=== PATIENT | male | born 1955 | race Caucasian/White ===

== ENCOUNTER 2017-03-01 19:20 | Outpatient (CLI) | payer MEDICAID | END 2017-03-01 19:21 | disposition critical access hospital (66) | LOC: EMS 19:20 | PROVIDERS: ATTEND Surgery | DX: R06.00 Dyspnea, unspecified (principal) | CPT/HCPCS: A0425; A0427 ==

== ENCOUNTER 2017-03-01 19:47 | Inpatient (IN) | payer MEDICAID ==
[2017-03-01] MEDS ORDERED: IPRATROPIUM/ALBUTEROL 3 ML NEB INH STA (20:10)
[2017-03-01] MEDS ORDERED: methylPREDNISolone SUCCINATE 125 MG/2 ML VIAL IVP STA (20:11)
[2017-03-01] MEDS ORDERED: AZITHROMYCIN INJ 500 MG in SODIUM CHLORIDE 0.9% 250 ML IV STA (20:21)
--- NOTE | 2017-03-01 20:23 | ED Physician Documentation ---
PD HPI DYSPNEA - Stated complaint Stated Complaint: SOA - Chief complaint Chief Complaint: Resp - History obtained from History obtained from: Patient - History of Present Illness Timing - onset: How many days ago (4) Timing - onset during: Light activity Timing - details: Gradual onset, Still present Inciting event(s): Out of meds Improved by: O2, Inhaler/neb, Steroids, Rest Worsened by: Exertion, Coughing, Smoke Similar symptoms before: Work up / diagnostics Recently seen: Not recently seen - Additional information Additional information: Patient is a 62 year old male with a history of copd who smokes daily who is presenting to the emergency department for worsening shortness of breath. ptaient states that he is unable to walk more than 10 feet before he gets short of breath. patient also states that he has been coughing up productive sputum daily for the last 4-5 days. patient's only home medication is albuterol. Review of Systems Constitutional: denies: Fever, Chills Eyes: reports: Reviewed and negative Ears: reports: Reviewed and negative Nose: denies: Rhinorrhea / runny nose, Congestion Cardiac: denies: Chest pain / pressure, Palpitations, Calf pain Respiratory: reports: Dyspnea, Cough, Wheezing GI: denies: Nausea, Vomiting : reports: Reviewed and negative Skin: reports: Reviewed and negative Musculoskeletal: denies: Neck pain, Back pain, Extremity pain, Extremity swelling Neurologic: reports: Generalized weakness. denies: Focal weakness, Numbness PD PAST MEDICAL HISTORY - Past Medical History Past Medical History: Yes Respiratory: COPD - Past Surgical History Past Surgical History: No - Present Medications Home Medications: Ambulatory Orders Medication Instructions Recorded Confirmed Albuterol Sulfate [Proair Hfa] 2 puffs INH Q4HR 05/02/15 03/01/17 - Allergies Allergies/Adverse Reactions: Allergies Allergy/AdvReac Type Severity Reaction Status Date / Time No Known Drug Allergies Allergy Verified 03/01/17 19:55 - Social History Does the pt smoke?: Yes Smoking Status: Current every day smoker Does the pt drink ETOH?: Yes Does the pt have substance abuse?: No - Immunizations Immunizations are current?: Yes - POLST Patient has POLST: No PD ED PE NORMAL - Vitals Vital signs reviewed: Yes - General General: Alert and oriented X 3 - HEENT HEENT: Atraumatic, PERRL - Neck Neck: Supple, no meningeal sign, No JVD - Abdomen Abdomen: Soft, Non tender, Non distended - Extremities Extremities: No deformity, No edema, No calf tenderness / cord - Neuro Neuro: Alert and oriented X 3, No motor deficit, No sensory deficit, Normal speech - Psych Psych: Normal mood PD ED PE EXPANDED - General General: Alert - HEENT HEENT: Dry mucous membranes - Respiratory Respiratory: Labored, Wheezing, Right upper lobe, Right middle lobe, Right lower lobe, Left upper lobe, Left lower lobe - Derm Derm: Other (ashen) Results - Vitals Vitals: Vital Signs - 24 hr 03/01/17 03/01/17 03/01/17 19:48 20:00 20:20 Temperature 36.9 C Heart Rate 95 93 82 Respiratory 18 20 18 Rate Blood Pressure 151/100 H 132/66 H O2 Saturation 90 L 91 L 03/01/17 03/01/17 03/01/17 20:53 21:04 21:06 Temperature Heart Rate 98 87 87 Respiratory 20 18 18 Rate Blood Pressure 122/88 H O2 Saturation 89 L 86 L 93 03/01/17 21:41 Temperature Heart Rate 114 H Respiratory 18 Rate Blood Pressure 141/86 H O2 Saturation 88 L Oxygen O2 Source Room air Oxygen Flow Rate 2 - Labs Labs: Laboratory Tests 03/01/17 03/01/17 03/01/17 20:18 20:18 20:18 WBC 11.0 H RBC 4.43 L Hgb 14.9 Hct 43.5 MCV 98.2 H MCH 33.5 H MCHC 34.2 RDW 12.5 Plt Count 282 MPV 8.8 Neut # 8.4 H Lymph # 1.6 [place] # 0.9 Eos # Not Reportable Baso # 0.1 Total Counted 100 Band Neuts % (Manual) 0 Abnorm Lymph % (Manual) 0 Neutrophils # (Manual) 8.4 H Lymphocytes # (Manual) 1.7 Monocytes # (Manual) 0.9 Eosinophils # (Manual) 0.0 Basophils # (Manual) 0.1 Differential Comment MANUAL DIFFERENTIAL Manual Slide Review Indicated Platelet Estimate NORMAL (130-450,000) Platelet Morphology NORMAL APPEARANCE RBC Morph Micro Appear NORMAL APPEARANCE Sodium 129 L Potassium 4.2 Chloride 93 L Carbon Dioxide 23 Anion Gap 13.0 BUN 8 Creatinine 0.5 L Estimated GFR (MDRD) 170 Glucose 105 H Calcium 8.4 L Total Bilirubin 0.3 AST 26 ALT 23 Alkaline Phosphatase 96 Troponin I < 0.04 B-Natriuretic Peptide Total Protein 7.3 Albumin 4.0 Globulin 3.3 Albumin/Globulin Ratio 1.2 Lipase 19 L 03/01/17 20:18 WBC RBC Hgb Hct MCV MCH MCHC RDW Plt Count MPV Neut # Lymph # [place] # Eos # Baso # Total Counted Band Neuts % (Manual) Abnorm Lymph % (Manual) Neutrophils # (Manual) Lymphocytes # (Manual) Monocytes # (Manual) Eosinophils # (Manual) Basophils # (Manual) Differential Comment Manual Slide Review Platelet Estimate Platelet Morphology RBC Morph Micro Appear Sodium Potassium Chloride Carbon Dioxide Anion Gap BUN Creatinine Estimated GFR (MDRD) Glucose Calcium Total Bilirubin AST ALT Alkaline Phosphatase Troponin I B-Natriuretic Peptide 57 Total Protein Albumin Globulin Albumin/Globulin Ratio Lipase - Rads (name of study) chest x-ray Radiology: Final report received (no acute disease process), EMP read contemporaneously (right lower lobe opacity) PD MEDICAL DECISION MAKING - ED course Complexity details: reviewed old records, reviewed results, re-evaluated patient , considered differential, d/w patient ED course: Patient was seen and examined at bedside. IV access was gained. Labs were drawn. Patient was treated with two duoneb treatments, solumedrol and azithromycin. Chest x-ray was performed. when patient returned from imaging he stated he felt a little better but was still short of breath. A trial of ambulation was performed and patient was hypoxic into the low 80s. Hospitalist was contacted and the case was discussed with her. patient was admitted for further evaluation and care. Departure - Departure Disposition: [facility] DC/Xfer Clinical Impression: COPD exacerbation Condition: Stable
[2017-03-01 20:36] LABS: ALBUMIN/GLOBULIN RATIO 1.2 (1.0-2.2); BILIRUBIN,TOTAL 0.3 mg/dL (0.2-1.0); CALCIUM 8.4 mg/dL (8.5-10.3); CREATININE 0.5 mg/dL (0.6-1.2); TOTAL PROTEIN 7.3 g/dL (6.7-8.2)
[2017-03-01 20:50] LABS: HGB - HEMOGLOBIN 14.9 g/dL (14.0-18.0); MEAN CORPUSCULAR HEMOGLOBIN 33.5 pg (27.0-31.0); MEAN CORPUSCULAR HGB CONC 34.2 g/dL (32.0-36.0); MEAN CORPUSCULAR VOLUME 98.2 fL (80.0-94.0); RED BLOOD COUNT 4.43 10^6/uL (4.70-6.10); RED CELL DISTRIBUTION WIDTH 12.5 % (12.0-15.0)
[2017-03-01 20:51] LABS: MEAN PLATELET VOLUME 8.8 fL (7.4-11.4); PLT - PLATELET COUNT 282 10^3/uL (130-450)
[2017-03-01 20:52] LABS: ABNORMAL LYMPHS % (MANUAL) 0 %; BAND NEUTROPHILS % (MANUAL) 0 %
[2017-03-01] MEDS ORDERED: ONDANSETRON 4 MG/2 ML VIAL IVP STA (20:56)
[2017-03-01] MEDS ORDERED: SODIUM CHLORIDE 0.9% 1,000 ML IV ONE (20:57)
--- NOTE | 2017-03-01 21:02 | XRAY Report ---
EXAM: CHEST RADIOGRAPHY EXAM DATE: 03/01/2017 08:50 PM. CLINICAL HISTORY: Hypoxic. COMPARISON: 05/02/2015. TECHNIQUE: 2 views. FINDINGS: Lungs/Pleura: Lungs are well expanded. No evidence of lobar consolidation or effusion. No pneumothora x. Mediastinum: Heart and mediastinal contours are unremarkable. Other: None. IMPRESSION: No acute intrathoracic plain film abnormality. [facility] Referring Provider Line: [phone] SITE ID: [id number]
[2017-03-01 21:03] LABS: BASOPHILS # (MANUAL) 0.1 10^3/uL (0-0.1); BASOPHILS % (MANUAL) 1 %; DIFFERENTIAL COMMENT MANUAL DIFFERENTIAL; LYMPHOCYTES # (MANUAL) 1.7 10^3/uL (1.5-3.5); LYMPHOCYTES % (MANUAL) 15 %; MONOCYTES # (MANUAL) 0.9 10^3/uL (0.0-1.0); NEUTROPHILS # (MANUAL) 8.4 10^3/uL (1.5-6.6); NEUTROPHILS % (MANUAL) 76 %; PLATELET ESTIMATE, MANUAL NORMAL (130-450,000) (NORMAL); PLATELET MORPHOLOGY NORMAL APPEARANCE (NORMAL); RBC MORPHOLOGY (MULTIPLE) NORMAL APPEARANCE (NORMAL)
[2017-03-01 21:08] LABS: BASOPHILS # (AUTO) 0.1 10^3/uL (0.0-0.1); LYMPHOCYTES # (AUTO) 1.6 10^3/uL (1.5-3.5); MONOCYTES # (AUTO) 0.9 10^3/uL (0.0-1.0); NEUTROPHILS # (AUTO) 8.4 10^3/uL (1.5-6.6)
[2017-03-01] MEDS ORDERED: TEMAZEPAM 15 MG CAPSULE PO PRN (22:51)
[2017-03-01] MEDS ORDERED: IBUPROFEN 600 MG TABLET PO PRN (22:51)
[2017-03-01] MEDS ORDERED: PROCHLORPERAZINE 10 MG/2 ML VIAL IVP PRN (22:51)
[2017-03-01] MEDS ORDERED: NS W/20 MEQ KCL 1,000 ML IV SCH (23:00)
--- NOTE | 2017-03-01 23:18 | HISTORY & PHYSICAL EXAMINATION ---
Chief Complaint - Chief Complaint Chief Complaint: Shortness of breath History of Present Illness - Admitted From Admitted From:: Home - History of Present Illness HPI Comment/Other: Mr. Shankar Dozier is a 62-year-old male who was diagnosed with COPD last year. He is supposed to take albuterol and follow-up with physicians regularly however he says that he has not done so since he lost his "Obama care " many months ago.He has been having increasing difficulty breathing over the last several months and over the last few weeks that has increased significantly. He is having significant dyspnea with any type of exertion and also at rest. He has been coughing up green sputum. He came to the [facility] emergency department and although the workup was essentially negative he is far too dyspneic with any type of exertion to be discharged. History - Past Medical History Respiratory: reports: COPD - Past Surgical History HEENT: reports: Tonsil/Adenoidectomy - Family & Social History Family History: Mother: (Mother of carbon monoxide poisoning), Father: , Hyperlipidemia, Hypertension, MD, Sister: Alive and Well, Mental Illness Living arrangement: At home Living Situation: Alone - Substance History Abuse: Recurrent use of substance despite neg consequences: Alcohol, Other ( Patient continues to smoke 1 pack per day of cigarettes despite being diagnosed with COPD) - POLST Patient has POLST: No POLST Status: Full Code Meds/Allgy - Home Medications Home Medications: Ambulatory Orders Medication Instructions Recorded Confirmed Albuterol Sulfate [Proair Hfa] 2 puffs INH Q4HR 05/02/15 03/01/17 - Allergies Allergies/Adverse Reactions: Allergies Allergy/AdvReac Type Severity Reaction Status Date / Time No Known Drug Allergies Allergy Verified 03/01/17 19:55 Review of Systems - Constitutional Constitutional: reports: Fatigue, Weakness. denies: Fever, Chills - Eyes Eyes: denies: Pain, Irritation, Blurred vision, Dipolpia - Ears, Nose & Throat Ears, Nose & Throat: denies: Ear pain, Hearing loss, Tinnitus, Vertigo, Nasal discharge, Sore throat - Cardiovascular Cariovascular: denies: Irregular heart rate, Palpitations, Chest pain, Edema - Respiratory Respiratory: reports: Cough, Sputum production, SOB at rest, SOB with exertion. denies: Wheezing - Gastrointestinal Gastrointestinal: denies: Abdominal pain, Abdominal distention, Constipation, Diarrhea, Rectal bleeding - Genitourinary Genitourinary: denies: Dysuria, Frequency, Urgency, Hematuria - Musculoskeletal Musculoskeletal: denies: Muscle pain, Back pain, Muscle aches, Stiffness - Integumentary Integumentary: denies: Rash, Pruritis, Lesions - Neurological Neurological: denies: General weakness, Focal weakness, Headache, Dizziness - Psychiatric Psychiatric: denies: Depression, Anxiety, Suicidal, Hallucinations - Endocrine Endocrine: denies: Polyuria, Polydypsia, Polyphagia - Hematologic/Lymphatic Hematologic/Lymphatic: denies: Anemia, Bruising, Lymphadenopathy - All Other Systems All Other Systems: reports: Reviewed and negative Exam - Vital Signs Reviewed Vital Signs: Yes Vital Signs: Vital Signs x48h Temp Pulse Resp BP Pulse Ox 03/01/17 22:57 90 18 142/94 H 91 L 03/01/17 22:30 105 H 18 131/93 H 90 L 03/01/17 21:41 114 H 18 141/86 H 88 L 03/01/17 21:06 87 18 93 03/01/17 21:04 87 18 86 L 03/01/17 20:53 98 20 122/88 H 89 L 03/01/17 20:20 82 18 03/01/17 20:00 93 20 132/66 H 91 L 03/01/17 19:48 36.9 C 95 18 151/100 H 90 L - Physical Exam General Appearance: positive: Alert, Mild distress, Anxious Eyes Bilateral: positive: Normal inspection, PERRL, EOMI, No lid inflammation ENT: positive: ENT inspection nml, Pharynx nml, No signs of dehydration. negative: Purulent nasal drainage Neck: positive: Nml inspection, Thyroid nml, No JVD, Trachea midline. negative : Thyromegaly Respiratory: positive: Chest non-tender, Other (Lung sounds are diminished in all freeman). negative: Wheezes, Rales, Rhonchi Cardiovascular: positive: Regular rate & rhythm, No murmur, No gallop. negative : Systolic murmur, Diastolic murmur Peripheral Pulses: positive: 1+ Abdomen: positive: Non-tender, No organomegaly, Nml bowel sounds, No distention. negative: Guarding, Rebound Back: positive: Nml inspection. negative: CVA tenderness (R), CVA tenderness (L ) Skin: positive: Color nml, No rash, Warm, Dry Extremities: positive: Non-tender, Full ROM, Nml appearance, No pedal edema Neurologic/Psychiatric: positive: Oriented x3, CN's nml (2-12), Motor nml, Sensation nml, Mood/affect nml Conclusion/Plan - Problem List (1) COPD exacerbation Conclusion/Plan: We will admit the patient to medical surgical bed, order [id number] nebulizer treatments, supplemental oxygen, and respiratory therapy, and will address any other issues as they arise. - Lab Results Lab results reviewed: Yes Fish Bones: 03/01/17 20:18 03/01/17 20:18 - Diagnostic Imaging Results Diagnostic Imaging Results: positive: Final report reviewed Diagnostic Imaging Results Comments: EXAM: CHEST RADIOGRAPHY EXAM DATE: 03/01/2017 08:50 PM. CLINICAL HISTORY: Hypoxic. COMPARISON: 05/02/2015. TECHNIQUE: 2 views. FINDINGS: Lungs/Pleura: Lungs are well expanded. No evidence of lobar consolidation or effusion. No pneumothorax. Mediastinum: Heart and mediastinal contours are unremarkable. Other: None. IMPRESSION: No acute intrathoracic plain film abnormality. Core Measures - Anticipated LOS I expect patient to be DC'd or transferred within 96 hours.: Yes - DVT/VTE - Prophylaxis VTE/DVT Device ordered at admit?: Yes
[2017-03-01 23:19] LABS: BASOPHILS % (AUTO) 0.3 %; EOSINOPHILS % (AUTO) 0.1 %; HGB - HEMOGLOBIN 14.1 g/dL (14.0-18.0); LYMPHOCYTES # (AUTO) 0.4 10^3/uL (1.5-3.5); MEAN CORPUSCULAR HEMOGLOBIN 33.4 pg (27.0-31.0); MEAN CORPUSCULAR HGB CONC 34.2 g/dL (32.0-36.0); MEAN CORPUSCULAR VOLUME 97.6 fL (80.0-94.0); MEAN PLATELET VOLUME 8.5 fL (7.4-11.4); MONOCYTES # (AUTO) 0.2 10^3/uL (0.0-1.0); MONOCYTES % (AUTO) 1.6 %; NEUTROPHILS # (AUTO) 11.1 10^3/uL (1.5-6.6); PLT - PLATELET COUNT 287 10^3/uL (130-450); RED BLOOD COUNT 4.22 10^6/uL (4.70-6.10); RED CELL DISTRIBUTION WIDTH 12.6 % (12.0-15.0); WHITE BLOOD COUNT 11.7 x10^3/uL (4.8-10.8)
[2017-03-02] MEDS: NICOTINE 21 MG PATCH TOP SCH ×2 (00:03→23:36)
[2017-03-02] MEDS ORDERED: NICOTINE 21 MG PATCH TOP ONE ×2 (00:07→23:40)
[2017-03-02] MEDS: LORazepam 0.5 MG TABLET PO SCH ×5 (00:10→23:36)
[2017-03-02] MEDS ORDERED: ALBUTEROL NEB 2.5 MG/3 ML INH PRN (00:15)
[2017-03-02 06:02] LABS: CALCIUM 8.4 mg/dL (8.5-10.3); MAGNESIUM 2.2 mg/dL (1.7-2.8)
[2017-03-02] MEDS: SODIUM CHLORIDE FLUSH 0.9% 10 ML SYRINGE IVP SCH ×3 (06:37→21:55)
[2017-03-02] MEDS ORDERED: IPRATROPIUM/ALBUTEROL 3 ML NEB INH SCH ×2 (07:00→08:00)
--- NOTE | 2017-03-02 07:46 | PROVIDER PROGRESS NOTE ---
Subjective - Prog Note Date Prog Note Date: 03/02/17 Prog Note Time: 07:45 - Subjective Pt reports feeling: Improved Subjective: Shankar states, "I just want to breath". He denies N/V, or a different cough. He admits to mild chest discomfort related to breathing efforts, continued shortness of breath. Current Medications - Current Medications Current Medications: Active Medications Albuterol () 2.5 mg INH RTQ4H PRN PRN Reason: Wheezing Beer (Beer) 355 ml PO 1000,1300,1800 INGRID Guaifenesin (Mucinex) 1,200 mg PO BID INGRID Guaifenesin (Mucinex) 600 mg PO ONCE ONE Stop: 03/02/17 12:01 Moxifloxacin HCl (Avelox 400mg/250ml Iv) 400 mg in 250 mls @ 250 mls/hr IV DAILY [facility] Ibuprofen (Motrin) 600 mg PO Q6HR PRN PRN Reason: Pain 1 to 4 Levalbuterol HCl (Xopenex) 1.25 mg INH Q4H PRN PRN Reason: Wheezing Last Admin: 03/02/17 11:20 Dose: 1.25 mg Lorazepam (Ativan) 0.5 mg PO Q6H [facility] Last Admin: 03/02/17 06:37 Dose: 0.5 mg Methylprednisolone Sodium Succinate (Solu-Medrol (125mg Vial)) 125 mg IVP TID [facility] Nicotine (Nicoderm) 1 patch TOP ONCE [facility] Stop: 03/03/17 02:00 Last Admin: 03/02/17 00:03 Dose: 1 patch Polyethylene Glycol (Miralax) 17 gm PO DAILY [facility] Last Admin: 03/02/17 09:32 Dose: Not Given Prochlorperazine Edisylate (Compazine Inj) 10 mg IVP Q6HR PRN PRN Reason: Nausea / Vomiting Sodium Chloride (Normal Saline Flush 0.9%) 10 ml IVP PRN PRN PRN Reason: NEEDED PER PROVIDER ORDERS Last Admin: 03/02/17 09:30 Dose: 10 ml Sodium Chloride (Normal Saline Flush 0.9%) 10 ml IVP Q8HR INGRID Last Admin: 03/02/17 06:37 Dose: Not Given Temazepam (Restoril) 15 mg PO QPM PRN PRN Reason: Insomnia Albuterol Sulfate [Proair Hfa] 2 puffs INH Q4HR 05/02/15 Objective - Vital Signs/Intake & Output Reviewed Vital Signs: Yes Vital Signs: Vital Signs x48h Pulse Resp 03/02/17 07:00 77 18 Intake & Output: Intake & Output 02/27/17 02/28/17 03/01/17 03/02/17 23:59 23:59 23:59 23:59 Output Total 700 1225 Balance -700 -5315 - Objective General Appearance: positive: Alert, Moderate distress, Anxious Eyes Bilateral: positive: Normal inspection ENT: positive: ENT inspection nml, Pharynx nml, Dry mucous membranes Neck: positive: Thyroid nml, No JVD, Trachea midline, Stiff neck, Other (All accessory muscle use.) Respiratory: positive: Chest non-tender, Wheezes, Rales, Other (congestion, rales, with wheezing.). negative: No respiratory distress Cardiovascular: positive: Irregularly irregular, Tachycardia, Systolic murmur, Gallop/S4 Peripheral Pulses: 2+ Radial (R), 2+ Radial (L) Abdomen: positive: Non-tender, No organomegaly, Nml bowel sounds, No distention Back: positive: Nml inspection Skin: positive: No rash, Warm, Dry, Cyanosis (mild) Extremities: positive: Non-tender, Full ROM, No pedal edema Neurologic/Psychiatric: positive: Oriented x3, CN's nml (2-12), Motor nml, Sensory loss, Depressed mood/affect Reflexes: Bicep (R): 2+, Bicep (L): 2+ - Lab Results Fish Bones: 03/02/17 05:27 03/02/17 05:27 Other Labs: Lab Results x24hrs 03/02/17 03/01/17 Range/Units 05:27 23:05 WBC 11.7 H (4.8-10.8) x10^3/uL RBC 4.22 L (4.70-6.10) 10^6/uL Hgb 14.1 (14.0-18.0) g/dL Hct 41.2 L (42.0-52.0) % MCV 97.6 H (80.0-94.0) fL MCH 33.4 H (27.0-31.0) pg MCHC 34.2 (32.0-36.0) g/dL RDW 12.6 (12.0-15.0) % Plt Count 287 (130-450) 10^3/uL MPV 8.5 (7.4-11.4) fL Neut # 11.1 H (1.5-6.6) 10^3/uL Lymph # 0.4 L (1.5-3.5) 10^3/uL [place] # 0.2 (0.0-1.0) 10^3/uL Eos # 0.0 (0.0-0.7) 10^3/uL Baso # 0.0 (0.0-0.1) 10^3/uL Absolute Nucleated RBC 0.00 x10^3/uL Nucleated RBC % 0.0 /100WBC Calcium 8.4 L (8.5-10.3) mg/dL Magnesium 2.2 (1.7-2.8) mg/dL - Diagnostic Imaging Diagnostic Imaging Results: positive: Final report reviewed Diagnostic Imaging Comments: Chest x-ray: FINDINGS: Lungs/Pleura: Lungs are well expanded. No evidence of lobar consolidation or effusion. No pneumothorax. Mediastinum: Heart and mediastinal contours are unremarkable. Other: None. IMPRESSION: No acute intrathoracic plain film abnormality. Assessment/Plan - Problem List (1) COPD exacerbation Impression: Patient has severe COPD and states that he cannot afford his inhalers. He has not been oxygen dependent. Plan: xopenex nebs, high dose IV steroids, IV antibiotics and oxygen sat test per RT. (2) Tobacco dependence Impression: Patient has been a life long smoker, and states today during his exam that he now is interested in quitting because he realizes the impact on his lung it has had. Plan: Nicotine replacement with nicotine patches. (3) Alcohol dependence Impression: Patient is profoundly debilitated due to his alcohol abuse. MUDDS urine ordered -pending. Patient states that he consumes a 6-pack of beer per day and has not tried to cut back or stop drinking. He states that he lost his job a year ago when his lung disease became worse, so has not been able to afford insurance, or appropriate COPD treatment. Plan: Ordered BEER to prevent withdrawal, since this is not his primary admitting diagnosis. Qualifiers: Substance use status: unspecified alcohol-induced disorder Qualified Code(s ): F10.29 - Alcohol dependence with unspecified alcohol-induced disorder (4) Medical non-compliance Impression: Patient admits to not managing his lung disease. Plan: Create a plan to promote compliance and ease of obtaining medications.
[2017-03-02 07:53] LABS: BASOPHILS % (AUTO) 0.1 %; HGB - HEMOGLOBIN 14.1 g/dL (14.0-18.0); LYMPHOCYTES # (AUTO) 0.3 10^3/uL (1.5-3.5); LYMPHOCYTES % (AUTO) 3.3 %; MEAN CORPUSCULAR HEMOGLOBIN 33.9 pg (27.0-31.0); MEAN CORPUSCULAR HGB CONC 34.2 g/dL (32.0-36.0); MEAN CORPUSCULAR VOLUME 99.2 fL (80.0-94.0); MEAN PLATELET VOLUME 9.3 fL (7.4-11.4); MONOCYTES # (AUTO) 0.1 10^3/uL (0.0-1.0); MONOCYTES % (AUTO) 1.5 %; NEUTROPHILS # (AUTO) 7.5 10^3/uL (1.5-6.6); NEUTROPHILS % (AUTO) 95.1 %; PLT - PLATELET COUNT 285 10^3/uL (130-450); RED BLOOD COUNT 4.16 10^6/uL (4.70-6.10); RED CELL DISTRIBUTION WIDTH 12.4 % (12.0-15.0); WHITE BLOOD COUNT 7.9 x10^3/uL (4.8-10.8)
[2017-03-02 07:58] LABS: ALBUMIN 3.8 g/dL (3.2-5.5); ALBUMIN/GLOBULIN RATIO 1.4 (1.0-2.2); BILIRUBIN,TOTAL 0.2 mg/dL (0.2-1.0); CALCIUM 8.5 mg/dL (8.5-10.3); CREATININE 0.6 mg/dL (0.6-1.2); TOTAL PROTEIN 6.6 g/dL (6.7-8.2)
[2017-03-02] MEDS ORDERED: methylPREDNISolone SUCCINATE 40 MG/ML VIAL IVP SCH (08:00)
[2017-03-02] MEDS ORDERED: guaiFENesin 600 MG TABLET PO SCH (08:00)
[2017-03-02 08:28] LABS: HB2 TOTAL 15.8 g/dL; HEMOGLOBIN A1C 0.56 g/dL; HEMOGLOBIN A1C % 5.4 % (4.6-6.2)
[2017-03-02] MEDS: SODIUM CHLORIDE FLUSH 0.9% 10 ML SYRINGE IVP PRN (09:30)
[2017-03-02] MEDS: POLYETHYLENE GLYCOL 3350 17 GM PACKET PO SCH (09:32)
[2017-03-02] MEDS: LEVALBUTEROL 1.25 MG/3 ML NEB INH PRN ×2 (11:20→15:05)
[2017-03-02] MEDS ORDERED: guaiFENesin 600 MG TABLET PO ONE (12:00)
[2017-03-02] MEDS: methylPREDNISolone SUCCINATE 125 MG/2 ML VIAL IVP SCH ×2 (12:02→21:56)
[2017-03-02] MEDS: MOXIFLOXACIN 400MG/250ML IV 400 MG/250 ML BAG IV SCH (12:02)
[2017-03-02] MEDS: BEER 355 ML BOTTLE PO SCH ×2 (12:36→18:16)
[2017-03-02 20:42] LABS: MUDS CUTOFF CONCENTRATIONS CUTOFF CONC BELOW:
[2017-03-02 20:57] LABS: AMPHETAMINE SCREEN,URINE NEGATIVE (NEGATIVE); BENZODIAZEPINES SCREEN, URINE POSITIVE (NEGATIVE); COCAINE SCREEN URINE NEGATIVE (NEGATIVE); METHADONE SCREEN, URINE POSITIVE (NEGATIVE); METHAMPHETAMINES SCREEN, URINE NEGATIVE (NEGATIVE); OPIATE SCREEN, URINE NEGATIVE (NEGATIVE); OXYCODONE SCREEN, URINE NEGATIVE (NEGATIVE); PROPOXYPHENE SCREEN, URINE NEGATIVE (NEGATIVE); TRICYCLIC ANTIDEPRESSANT,URINE NEGATIVE (NEGATIVE)
[2017-03-02] MEDS: guaiFENesin 600 MG TABLET PO SCH (21:55)
[2017-03-02] MEDS: SODIUM CHLORIDE 0.65% NASAL SPRAY NAS SCH (21:58)
[2017-03-02] MEDS ORDERED: SODIUM CHLORIDE FLUSH 0.9% 10 ML SYRINGE IVP ONE (21:59)
[2017-03-03] MEDS: methylPREDNISolone SUCCINATE 125 MG/2 ML VIAL IVP SCH ×3 (05:54→21:29)
[2017-03-03] MEDS: SODIUM CHLORIDE FLUSH 0.9% 10 ML SYRINGE IVP SCH ×3 (05:55→21:29)
[2017-03-03] MEDS: LORazepam 0.5 MG TABLET PO SCH ×3 (05:55→17:43)
[2017-03-03 06:30] LABS: HGB - HEMOGLOBIN 14.4 g/dL (14.0-18.0); LYMPHOCYTES # (AUTO) 0.4 10^3/uL (1.5-3.5); LYMPHOCYTES % (AUTO) 2.9 %; MEAN CORPUSCULAR HEMOGLOBIN 33.1 pg (27.0-31.0); MEAN CORPUSCULAR HGB CONC 33.2 g/dL (32.0-36.0); MEAN CORPUSCULAR VOLUME 99.8 fL (80.0-94.0); MEAN PLATELET VOLUME 8.8 fL (7.4-11.4); MONOCYTES # (AUTO) 0.6 10^3/uL (0.0-1.0); MONOCYTES % (AUTO) 3.9 %; NEUTROPHILS # (AUTO) 13.1 10^3/uL (1.5-6.6); NEUTROPHILS % (AUTO) 93.2 %; PLT - PLATELET COUNT 301 10^3/uL (130-450); RED BLOOD COUNT 4.34 10^6/uL (4.70-6.10); RED CELL DISTRIBUTION WIDTH 12.4 % (12.0-15.0); WHITE BLOOD COUNT 14.1 x10^3/uL (4.8-10.8)
[2017-03-03 06:39] LABS: ALBUMIN 3.6 g/dL (3.2-5.5); ALBUMIN/GLOBULIN RATIO 1.2 (1.0-2.2); BILIRUBIN,TOTAL 0.3 mg/dL (0.2-1.0); CALCIUM 8.7 mg/dL (8.5-10.3); CREATININE 0.5 mg/dL (0.6-1.2); TOTAL PROTEIN 6.7 g/dL (6.7-8.2)
[2017-03-03] MEDS: guaiFENesin 600 MG TABLET PO SCH ×2 (08:28→21:29)
[2017-03-03] MEDS: SODIUM CHLORIDE FLUSH 0.9% 10 ML SYRINGE IVP PRN (08:28)
[2017-03-03] MEDS: POLYETHYLENE GLYCOL 3350 17 GM PACKET PO SCH (08:29)
[2017-03-03] MEDS: MOXIFLOXACIN 400MG/250ML IV 400 MG/250 ML BAG IV SCH (08:29)
[2017-03-03] MEDS: SODIUM CHLORIDE 0.65% NASAL SPRAY NAS SCH ×2 (08:29→21:29)
--- NOTE | 2017-03-03 10:09 | PROVIDER PROGRESS NOTE ---
Subjective - Prog Note Date Prog Note Date: 03/03/17 Prog Note Time: 10:09 - Subjective Pt reports feeling: Improved Subjective: Shankar notes activity intolerance when making extra efforts, for example, this morning while in the bathroom. He notes becoming very short of breath with coughing. He denies chest pain, alcohol withdrawal symptoms, N/V, or a changed cough. Current Medications - Current Medications Current Medications: Active Medications Albuterol () 2.5 mg INH RTQ4H PRN PRN Reason: Wheezing Beer (Beer) 480 ml PO 1000,1300,1800 [facility] Last Admin: 03/03/17 14:19 Dose: 480 ml Guaifenesin (Mucinex) 1,200 mg PO BID [facility] Last Admin: 03/03/17 08:28 Dose: 1,200 mg Moxifloxacin HCl (Avelox 400mg/250ml Iv) 400 mg in 250 mls @ 250 mls/hr IV DAILY [facility] Last Infusion: 03/03/17 09:29 Dose: Infused Ibuprofen (Motrin) 600 mg PO Q6HR PRN PRN Reason: Pain 1 to 4 Levalbuterol HCl (Xopenex) 1.25 mg INH Q4H PRN PRN Reason: Wheezing Last Admin: 03/02/17 15:05 Dose: 1.25 mg Lorazepam (Ativan) 0.5 mg PO Q6H [facility] Last Admin: 03/03/17 12:13 Dose: 0.5 mg Methylprednisolone Sodium Succinate (Solu-Medrol (125mg Vial)) 125 mg IVP TID [facility] Last Admin: 03/03/17 14:19 Dose: 125 mg Nicotine (Nicoderm) 1 patch TOP DAILY [facility] Last Admin: 03/03/17 14:14 Dose: 1 patch Polyethylene Glycol (Miralax) 17 gm PO DAILY [facility] Last Admin: 03/03/17 08:29 Dose: Not Given Prochlorperazine Edisylate (Compazine Inj) 10 mg IVP Q6HR PRN PRN Reason: Nausea / Vomiting Sodium Chloride (Normal Saline Flush 0.9%) 10 ml IVP PRN PRN PRN Reason: NEEDED PER PROVIDER ORDERS Last Admin: 03/03/17 08:28 Dose: 10 ml Sodium Chloride (Normal Saline Flush 0.9%) 10 ml IVP Q8HR [facility] Last Admin: 03/03/17 14:19 Dose: 20 ml Sodium Chloride ([place]) 2 sprays CAROLANN BID [facility] Last Admin: 03/03/17 08:29 Dose: 2 sprays Temazepam (Restoril) 15 mg PO QPM PRN PRN Reason: Insomnia Albuterol Sulfate [Proair Hfa] 2 puffs INH Q4HR 05/02/15 Objective - Vital Signs/Intake & Output Reviewed Vital Signs: Yes Vital Signs: Vital Signs x48h Temp Pulse Resp BP Pulse Ox 03/03/17 07:49 36.4 C L 72 20 103/78 98 03/03/17 05:41 36.4 C L 66 16 140/76 H 98 Intake & Output: Intake & Output 02/28/17 03/01/17 03/02/17 03/03/17 23:59 23:59 23:59 23:59 Intake Total 2900 320 Output Total 700 3525 600 Balance -700 -250 -280 - Objective General Appearance: positive: Alert, Moderate distress, Anxious Eyes Bilateral: positive: Normal inspection Eyes: OU Conjunctivae pale, OU Scleral icterus ENT: positive: ENT inspection nml, Pharynx nml, Dry mucous membranes Neck: positive: Nml inspection, Thyroid nml, No JVD, Stiff neck, Other ( accessory muscle use.) Respiratory: positive: Chest non-tender, Wheezes, Rales Cardiovascular: positive: Regular rate & rhythm, No gallop, Systolic murmur Peripheral Pulses: 2+ Radial (R), 2+ Radial (L) Abdomen: positive: Non-tender, No organomegaly, Nml bowel sounds, No distention Rectal: positive: Non-tender Back: positive: Nml inspection Skin: positive: No rash, Warm, Dry, Diaphoresis, Pallor Extremities: positive: Non-tender, Full ROM, No pedal edema Neurologic/Psychiatric: positive: Oriented x3, CN's nml (2-12), Motor nml, Sensation nml, Depressed mood/affect Reflexes: Bicep (R): 2+, Bicep (L): 2+ - Lab Results Fish Bones: 03/03/17 06:12 03/03/17 06:12 Other Labs: Lab Results x24hrs 03/03/17 03/03/17 03/02/17 Range/Units 06:12 06:12 20:36 WBC 14.1 H (4.8-10.8) x10^3/uL RBC 4.34 L (4.70-6.10) 10^6/uL Hgb 14.4 (14.0-18.0) g/dL Hct 43.4 (42.0-52.0) % MCV 99.8 H (80.0-94.0) fL MCH 33.1 H (27.0-31.0) pg MCHC 33.2 (32.0-36.0) g/dL RDW 12.4 (12.0-15.0) % Plt Count 301 (130-450) 10^3/uL MPV 8.8 (7.4-11.4) fL Neut # 13.1 H (1.5-6.6) 10^3/uL Lymph # 0.4 L (1.5-3.5) 10^3/uL [place] # 0.6 (0.0-1.0) 10^3/uL Eos # 0.0 (0.0-0.7) 10^3/uL Baso # 0.0 (0.0-0.1) 10^3/uL Absolute Nucleated RBC 0.00 x10^3/uL Nucleated RBC % 0.0 /100WBC Sodium 134 L (135-145) mmol/L Potassium 4.2 (3.5-5.0) mmol/L Chloride 99 L (101-111) mmol/L Carbon Dioxide 28 (21-32) mmol/L Anion Gap 7.0 (6-13) BUN 12 (6-20) mg/dL Creatinine 0.5 L (0.6-1.2) mg/dL Estimated GFR (MDRD) 170 (>89) Glucose 146 H (70-100) mg/dL Calcium 8.7 (8.5-10.3) mg/dL Total Bilirubin 0.3 (0.2-1.0) mg/dL AST 19 (10-42) IU/L ALT 21 (10-60) IU/L Alkaline Phosphatase 82 (42-121) IU/L Troponin I (<0.49) ng/mL Total Protein 6.7 (6.7-8.2) g/dL Albumin 3.6 (3.2-5.5) g/dL Globulin 3.1 (2.1-4.2) g/dL Albumin/Globulin Ratio 1.2 (1.0-2.2) Urine Opiates Screen NEGATIVE (NEGATIVE) Ur Oxycodone Screen NEGATIVE (NEGATIVE) Urine Methadone Screen POSITIVE H (NEGATIVE) Ur Propoxyphene Screen NEGATIVE (NEGATIVE) Ur Barbiturates Screen NEGATIVE (NEGATIVE) Ur Tricyclics Screen NEGATIVE (NEGATIVE) Ur Phencyclidine Scrn NEGATIVE (NEGATIVE) Ur Amphetamine Screen NEGATIVE (NEGATIVE) U Methamphetamines Scrn NEGATIVE (NEGATIVE) U Benzodiazepines Scrn POSITIVE H (NEGATIVE) Urine Cocaine Screen NEGATIVE (NEGATIVE) U Cannabinoids Screen NEGATIVE (NEGATIVE) 03/02/17 Range/Units 11:36 WBC (4.8-10.8) x10^3/uL RBC (4.70-6.10) 10^6/uL Hgb (14.0-18.0) g/dL Hct (42.0-52.0) % MCV (80.0-94.0) fL MCH (27.0-31.0) pg MCHC (32.0-36.0) g/dL RDW (12.0-15.0) % Plt Count (130-450) 10^3/uL MPV (7.4-11.4) fL Neut # (1.5-6.6) 10^3/uL Lymph # (1.5-3.5) 10^3/uL [place] # (0.0-1.0) 10^3/uL Eos # (0.0-0.7) 10^3/uL Baso # (0.0-0.1) 10^3/uL Absolute Nucleated RBC x10^3/uL Nucleated RBC % /100WBC Sodium (135-145) mmol/L Potassium (3.5-5.0) mmol/L Chloride (101-111) mmol/L Carbon Dioxide (21-32) mmol/L Anion Gap (6-13) BUN (6-20) mg/dL Creatinine (0.6-1.2) mg/dL Estimated GFR (MDRD) (>89) Glucose (70-100) mg/dL Calcium (8.5-10.3) mg/dL Total Bilirubin (0.2-1.0) mg/dL AST (10-42) IU/L ALT (10-60) IU/L Alkaline Phosphatase (42-121) IU/L Troponin I < 0.04 (<0.49) ng/mL Total Protein (6.7-8.2) g/dL Albumin (3.2-5.5) g/dL Globulin (2.1-4.2) g/dL Albumin/Globulin Ratio (1.0-2.2) Urine Opiates Screen (NEGATIVE) Ur Oxycodone Screen (NEGATIVE) Urine Methadone Screen (NEGATIVE) Ur Propoxyphene Screen (NEGATIVE) Ur Barbiturates Screen (NEGATIVE) Ur Tricyclics Screen (NEGATIVE) Ur Phencyclidine Scrn (NEGATIVE) Ur Amphetamine Screen (NEGATIVE) U Methamphetamines Scrn (NEGATIVE) U Benzodiazepines Scrn (NEGATIVE) Urine Cocaine Screen (NEGATIVE) U Cannabinoids Screen (NEGATIVE) - Diagnostic Imaging Diagnostic Imaging Results: positive: Final report reviewed Assessment/Plan - Problem List (1) COPD exacerbation Impression: Patient has severe COPD and states that he cannot afford his inhalers. He has not been oxygen dependent before this hospital stay. He has required oxygen for this stay and when he takes it off, he begins coughing uncontrollably. Plan: xopenex nebs, high dose IV steroids, IV antibiotics and oxygen sat test per RT. Plan for a walking oxygen saturation test upon discharge. (2) Tobacco dependence Impression: Patient has been a life long smoker, and states today during his exam that he now is interested in quitting because he realizes the impact on his lung it has had. Plan: Nicotine replacement with nicotine patches, now ordered daily. (3) Alcohol dependence Impression: Patient is profoundly debilitated due to his alcohol abuse. CARMELO urine showed +methadone. Patient states that he consumes a 6-pack of beer per day and has not tried to cut back or stop drinking. He states that he lost his job a year ago when his lung disease became worse, so has not been able to afford insurance , or appropriate COPD treatment. BEER treatment has been going well. Plan: Ordered BEER to prevent withdrawal, since this is not his primary admitting diagnosis. Qualifiers: Substance use status: unspecified alcohol-induced disorder Qualified Code(s ): F10.29 - Alcohol dependence with unspecified alcohol-induced disorder (4) Medical non-compliance Impression: Patient admits to not managing his lung disease. Urine drug screen CARMELO was positive for methadone, and patient admits to obtaining this drug from a friend for his right shoulder pain. Plan: Create a plan to promote compliance and ease of obtaining medications. Social work/case management has given patient information about community services.
[2017-03-03] MEDS: BEER 355 ML BOTTLE PO SCH (10:36)
[2017-03-03] MEDS ORDERED: BEER 355 ML BOTTLE PO SCH (13:00)
[2017-03-03] MEDS: NICOTINE 21 MG PATCH TOP SCH (14:14)
[2017-03-03] MEDS: BEER 480 ML CAN PO SCH ×2 (14:19→17:43)
[2017-03-03] MEDS: LEVALBUTEROL 1.25 MG/3 ML NEB INH PRN (21:11)
[2017-03-04] MEDS: LORazepam 0.5 MG TABLET PO SCH ×5 (00:15→23:37)
[2017-03-04 05:57] LABS: BASOPHILS % (AUTO) 0.1 %; HGB - HEMOGLOBIN 14.1 g/dL (14.0-18.0); LYMPHOCYTES # (AUTO) 0.4 10^3/uL (1.5-3.5); LYMPHOCYTES % (AUTO) 3.6 %; MEAN CORPUSCULAR HEMOGLOBIN 33.5 pg (27.0-31.0); MEAN CORPUSCULAR HGB CONC 33.6 g/dL (32.0-36.0); MEAN CORPUSCULAR VOLUME 99.8 fL (80.0-94.0); MEAN PLATELET VOLUME 8.2 fL (7.4-11.4); MONOCYTES # (AUTO) 0.5 10^3/uL (0.0-1.0); NEUTROPHILS # (AUTO) 9.9 10^3/uL (1.5-6.6); NEUTROPHILS % (AUTO) 91.3 %; PLT - PLATELET COUNT 306 10^3/uL (130-450); RED BLOOD COUNT 4.22 10^6/uL (4.70-6.10); RED CELL DISTRIBUTION WIDTH 12.5 % (12.0-15.0); WHITE BLOOD COUNT 10.8 x10^3/uL (4.8-10.8)
[2017-03-04 06:17] LABS: ALBUMIN 3.3 g/dL (3.2-5.5); ALBUMIN/GLOBULIN RATIO 1.1 (1.0-2.2); BILIRUBIN,TOTAL 0.2 mg/dL (0.2-1.0); CALCIUM 8.8 mg/dL (8.5-10.3); CREATININE 0.5 mg/dL (0.6-1.2); TOTAL PROTEIN 6.2 g/dL (6.7-8.2)
[2017-03-04] MEDS: SODIUM CHLORIDE FLUSH 0.9% 10 ML SYRINGE IVP SCH ×3 (06:22→20:49)
[2017-03-04] MEDS: methylPREDNISolone SUCCINATE 125 MG/2 ML VIAL IVP SCH ×3 (06:28→20:49)
[2017-03-04] MEDS: POLYETHYLENE GLYCOL 3350 17 GM PACKET PO SCH (08:12)
[2017-03-04] MEDS: NICOTINE 21 MG PATCH TOP SCH (08:23)
[2017-03-04] MEDS: MOXIFLOXACIN 400MG/250ML IV 400 MG/250 ML BAG IV SCH (08:23)
[2017-03-04] MEDS: guaiFENesin 600 MG TABLET PO SCH ×2 (08:23→20:49)
[2017-03-04] MEDS: SODIUM CHLORIDE FLUSH 0.9% 10 ML SYRINGE IVP PRN (08:24)
[2017-03-04] MEDS: SODIUM CHLORIDE 0.65% NASAL SPRAY NAS SCH ×2 (08:24→20:50)
[2017-03-04] MEDS: LEVALBUTEROL 1.25 MG/3 ML NEB INH PRN ×2 (09:04→13:34)
[2017-03-04] MEDS: BEER 480 ML CAN PO SCH ×3 (10:42→17:43)
--- NOTE | 2017-03-04 16:45 | PROVIDER PROGRESS NOTE ---
Subjective - Prog Note Date Prog Note Date: 03/04/17 - Subjective Pt reports feeling: Improved Subjective: pt state he feel some improvement but still feel shortness of breathing, and wheezing. Current Medications - Current Medications Current Medications: Active Medications Albuterol () 2.5 mg INH RTQ4H PRN PRN Reason: Wheezing Albuterol/Ipratropium (Duoneb) 3 ml INH Q4HR PRN PRN Reason: Wheezing Beer (Beer) 480 ml PO 1000,1300,1800 [facility] Last Admin: 03/04/17 13:19 Dose: 480 ml Guaifenesin (Mucinex) 1,200 mg PO BID [facility] Last Admin: 03/04/17 08:23 Dose: 1,200 mg Moxifloxacin HCl (Avelox 400mg/250ml Iv) 400 mg in 250 mls @ 250 mls/hr IV DAILY [facility] Last Infusion: 03/04/17 09:23 Dose: Infused Ibuprofen (Motrin) 600 mg PO Q6HR PRN PRN Reason: Pain 1 to 4 Levalbuterol HCl (Xopenex) 1.25 mg INH Q4H PRN PRN Reason: Wheezing Last Admin: 03/04/17 13:34 Dose: 1.25 mg Lorazepam (Ativan) 0.5 mg PO Q6H [facility] Last Admin: 03/04/17 11:53 Dose: 0.5 mg Methylprednisolone Sodium Succinate (Solu-Medrol (125mg Vial)) 125 mg IVP TID [facility] Last Admin: 03/04/17 14:01 Dose: 125 mg Nicotine (Nicoderm) 1 patch TOP DAILY [facility] Last Admin: 03/04/17 08:23 Dose: 1 patch Polyethylene Glycol (Miralax) 17 gm PO DAILY [facility] Last Admin: 03/04/17 08:12 Dose: Not Given Prochlorperazine Edisylate (Compazine Inj) 10 mg IVP Q6HR PRN PRN Reason: Nausea / Vomiting Sodium Chloride (Normal Saline Flush 0.9%) 10 ml IVP PRN PRN PRN Reason: NEEDED PER PROVIDER ORDERS Last Admin: 03/04/17 08:24 Dose: 10 ml Sodium Chloride (Normal Saline Flush 0.9%) 10 ml IVP Q8HR [facility] Last Admin: 03/04/17 14:02 Dose: 20 ml Sodium Chloride ([place]) 2 sprays CAROLANN BID [facility] Last Admin: 03/04/17 08:24 Dose: 2 sprays Temazepam (Restoril) 15 mg PO QPM PRN PRN Reason: Insomnia Albuterol Sulfate [Proair Hfa] 2 puffs INH Q4HR 05/02/15 Objective - Vital Signs/Intake & Output Reviewed Vital Signs: Yes Vital Signs: Vital Signs x48h Temp Pulse Pulse Resp BP Pulse Ox 03/04/17 15:53 36.6 C 80 16 125/71 97 03/04/17 14:40 97 03/04/17 13:34 95 14 03/04/17 09:04 80 16 Intake & Output: Intake & Output 03/01/17 03/02/17 03/03/17 03/04/17 23:59 23:59 23:59 23:59 Intake Total 2900 1490 1100 Output Total 700 3525 1375 1500 Balance -700 -625 115 -400 - Objective General Appearance: positive: No acute distress, Alert. negative: Lethargic Eyes Bilateral: positive: Normal inspection, PERRL, No lid inflammation, Conjunctivae nml ENT: positive: ENT inspection nml, Pharynx nml, No signs of dehydration. negative: Purulent nasal drainage, Pharyngeal erythema, Oral lesions Neck: positive: Nml inspection, Thyroid nml, No JVD, Trachea midline. negative : Thyromegaly, Lymphadenopathy (R), Lymphadenopathy (L), Stiff neck, Carotid bruit, Swelling/bruising, Tracheal deviation Respiratory: positive: Chest non-tender, Wheezes Cardiovascular: positive: Regular rate & rhythm, No murmur, No gallop. negative : Irregularly irregular, Extrasystoles, Tachycardia, Bradycardia Peripheral Pulses: 2+ Radial (R), 2+ Radial (L), 2+ Dorsalis pedis (R), 2+ Dorsalis pedis (L) Abdomen: positive: No organomegaly, Nml bowel sounds, No distention. negative: Tenderness, Guarding, Rebound Skin: positive: Color nml, No rash, Warm, Dry. negative: Cyanosis, Diaphoresis , Pallor Extremities: positive: Non-tender, Full ROM, Nml appearance. negative: Calf tenderness, Joint swelling, Leeanna's sign/cords Neurologic/Psychiatric: positive: Oriented x3, Motor nml, Sensation nml, Mood/ affect nml. negative: Sensory loss, Facial droop, Slurred/abnml speech, Depressed mood/affect - Lab Results Fish Bones: 03/04/17 05:42 03/04/17 05:42 Other Labs: Lab Results x24hrs 03/04/17 03/04/17 Range/Units 05:42 05:42 WBC 10.8 (4.8-10.8) x10^3/uL RBC 4.22 L (4.70-6.10) 10^6/uL Hgb 14.1 (14.0-18.0) g/dL Hct 42.1 (42.0-52.0) % MCV 99.8 H (80.0-94.0) fL MCH 33.5 H (27.0-31.0) pg MCHC 33.6 (32.0-36.0) g/dL RDW 12.5 (12.0-15.0) % Plt Count 306 (130-450) 10^3/uL MPV 8.2 (7.4-11.4) fL Neut # 9.9 H (1.5-6.6) 10^3/uL Lymph # 0.4 L (1.5-3.5) 10^3/uL [place] # 0.5 (0.0-1.0) 10^3/uL Eos # 0.0 (0.0-0.7) 10^3/uL Baso # 0.0 (0.0-0.1) 10^3/uL Absolute Nucleated RBC 0.00 x10^3/uL Nucleated RBC % 0.0 /100WBC Sodium 135 (135-145) mmol/L Potassium 4.4 (3.5-5.0) mmol/L Chloride 97 L (101-111) mmol/L Carbon Dioxide 29 (21-32) mmol/L Anion Gap 9.0 (6-13) BUN 14 (6-20) mg/dL Creatinine 0.5 L (0.6-1.2) mg/dL Estimated GFR (MDRD) 170 (>89) Glucose 137 H (70-100) mg/dL Calcium 8.8 (8.5-10.3) mg/dL Total Bilirubin 0.2 (0.2-1.0) mg/dL AST 19 (10-42) IU/L ALT 22 (10-60) IU/L Alkaline Phosphatase 70 (42-121) IU/L Total Protein 6.2 L (6.7-8.2) g/dL Albumin 3.3 (3.2-5.5) g/dL Globulin 2.9 (2.1-4.2) g/dL Albumin/Globulin Ratio 1.1 (1.0-2.2) Assessment/Plan - Problem List (1) COPD exacerbation Impression: (1) COPD exacerbation Impression: pt still feel very shortness of breathing when exertion, wheezing at all lobes of lung. will continue steroid and INH treatment add Duoneb CT of chest, pt has long hx of cigarette smoking, no significant improvement at the treatment, R/O malignance. Patient has severe COPD and states that he cannot afford his inhalers. He has not been oxygen dependent before this hospital stay. He has required oxygen for this stay and when he takes it off, he begins coughing uncontrollably. Plan: xopenex nebs, high dose IV steroids, IV antibiotics and oxygen sat test per RT. Plan for a walking oxygen saturation test upon discharge. (2) Tobacco dependence Impression: consult for pt to quit cigarette smoking Patient has been a life long smoker, and states today during his exam that he now is interested in quitting because he realizes the impact on his lung it has had. Plan: Nicotine replacement with nicotine patches, now ordered daily. (3) Alcohol dependence Impression: Patient is profoundly debilitated due to his alcohol abuse. MUDDS urine showed +methadone. Patient states that he consumes a 6-pack of beer per day and has not tried to cut back or stop drinking. He states that he lost his job a year ago when his lung disease became worse, so has not been able to afford insurance , or appropriate COPD treatment. BEER treatment has been going well. Plan: Ordered BEER to prevent withdrawal, since this is not his primary admitting diagnosis. (4) Medical non-compliance Impression: consult to pt for medical compliance Patient admits to not managing his lung disease. Urine drug screen MUDDS was positive for methadone, and patient admits to obtaining this drug from a friend for his right shoulder pain. Plan: Create a plan to promote compliance and ease of obtaining medications. Social work/case management has given patient information about community services. (5) illicit drug abuse UDS reveals pt is positive for Mathadone,and Phong. pt is advised to quit these illicit drugs. pt has been admitted for 96 hours, not be discharged based on pt's still severe shortness of breathing, wheezing, O2 dependence.
[2017-03-04] MEDS: IPRATROPIUM/ALBUTEROL 3 ML NEB INH PRN (17:50)
[2017-03-04] MEDS ORDERED: IOPAMIDOL-300 100 ML VIAL ONE (20:19)
[2017-03-04] MEDS ORDERED: IOPAMIDOL-300 100 ML VIAL IVP ONE (20:54)
--- NOTE | 2017-03-04 21:12 | CT Preliminary Report ---
Exam: CT CHEST W/ IMPRESSION: 1. Chronic lung disease. 2. Moderate central spinal canal stenosis T11-T12. [facility] SITE ID: [id number]
--- NOTE | 2017-03-04 21:18 | CT Report ---
EXAM: CT CHEST EXAM DATE: 03/04/2017 08:40 PM. CLINICAL HISTORY: Shortness of breath. COMPARISONS: None. TECHNIQUE: Routine helical CT imaging was performed through the chest. IV contrast: 80 mL Isovue 300. Reconstructions: Coronal and sagittal. In accordance with CT protocol optimization, one or more of the following dose reduction techniques w ere utilized for this exam: automated exposure control, adjustment of mA and/or KV based on patient s ize, or use of iterative reconstructive technique. FINDINGS: Lungs/Pleura: Overexpanded, emphysematous changes. No nodules, bronchial thickening, consolidation, or edema. Pulmo nary vasculature is normal. No pericardial or pleural effusion. No pneumothorax. Mediastinum: Normal. No adenopathy or masses. The heart and great vessels are normal. Bones: Marked degenerative disk disease L2-L3. Moderate central spinal canal stenosis at T11-T12. Trabecular and cortical patterns are intact. Visualized Abdomen: Several small hepatic cysts. Other: None. IMPRESSION: 1. Chronic lung disease. 2. Moderate central spinal canal stenosis T11-T12. [facility] Referring Provider Line: [phone] SITE ID: [id number]
[2017-03-05 05:56] LABS: BASOPHILS % (AUTO) 0.1 %; HGB - HEMOGLOBIN 13.6 g/dL (14.0-18.0); LYMPHOCYTES # (AUTO) 0.3 10^3/uL (1.5-3.5); LYMPHOCYTES % (AUTO) 4.4 %; MEAN CORPUSCULAR HEMOGLOBIN 32.8 pg (27.0-31.0); MEAN CORPUSCULAR HGB CONC 32.7 g/dL (32.0-36.0); MEAN CORPUSCULAR VOLUME 100.2 fL (80.0-94.0); MEAN PLATELET VOLUME 8.7 fL (7.4-11.4); MONOCYTES # (AUTO) 0.4 10^3/uL (0.0-1.0); NEUTROPHILS # (AUTO) 6.9 10^3/uL (1.5-6.6); NEUTROPHILS % (AUTO) 90.5 %; PLT - PLATELET COUNT 306 10^3/uL (130-450); RED BLOOD COUNT 4.14 10^6/uL (4.70-6.10); RED CELL DISTRIBUTION WIDTH 12.1 % (12.0-15.0); WHITE BLOOD COUNT 7.6 x10^3/uL (4.8-10.8)
[2017-03-05 06:02] LABS: ALBUMIN 3.2 g/dL (3.2-5.5); ALBUMIN/GLOBULIN RATIO 1.2 (1.0-2.2); BILIRUBIN,TOTAL 0.3 mg/dL (0.2-1.0); CALCIUM 8.8 mg/dL (8.5-10.3); CREATININE 0.5 mg/dL (0.6-1.2); TOTAL PROTEIN 5.8 g/dL (6.7-8.2)
[2017-03-05] MEDS: LORazepam 0.5 MG TABLET PO SCH ×2 (06:34→12:27)
[2017-03-05] MEDS: SODIUM CHLORIDE FLUSH 0.9% 10 ML SYRINGE IVP SCH ×2 (06:34→15:03)
[2017-03-05] MEDS: IPRATROPIUM/ALBUTEROL 3 ML NEB INH PRN ×2 (06:45→12:40)
[2017-03-05] MEDS: guaiFENesin 600 MG TABLET PO SCH (08:37)
[2017-03-05] MEDS: MOXIFLOXACIN 400MG/250ML IV 400 MG/250 ML BAG IV SCH (08:37)
[2017-03-05] MEDS: NICOTINE 21 MG PATCH TOP SCH (08:37)
[2017-03-05] MEDS: POLYETHYLENE GLYCOL 3350 17 GM PACKET PO SCH (08:37)
[2017-03-05] MEDS: SODIUM CHLORIDE 0.65% NASAL SPRAY NAS SCH (08:37)
[2017-03-05] MEDS: SODIUM CHLORIDE FLUSH 0.9% 10 ML SYRINGE IVP PRN ×2 (08:38→09:00)
[2017-03-05] MEDS: BEER 480 ML CAN PO SCH ×2 (12:28→14:57)
[2017-03-05] MEDS ORDERED: methylPREDNISolone SUCCINATE 125 MG/2 ML VIAL IVP SCH (14:00)
--- NOTE | 2017-03-05 15:47 | Discharge Plan ---
Discharge Plan Disposition: 01 Home, Self Care Condition: Stable Prescriptions: Ipratropium/Albuterol [Duoneb] 3 ml INH Q4HR PRN #42 neb PRN Reason: Wheezing Levalbuterol [Xopenex] 1.25 mg INH Q4H PRN #42 neb PRN Reason: Wheezing Diet: Regular Activity Restrictions: Activity as Tolerated Shower Restrictions: No Weight Bearing: Full Weight Instruction Topics: COPD, Levalbuterol inhalation solution, Albuterol Ipratropium solution for inhalation, Prednisone tablets, Disease Chronic Lung Quit Smoking Additional Instructions or Follow Up instructions: May see PCP in 3-4 days. Follow-Up Care: [facility] - Pulmonary No Smoking: If you smoke, Please STOP! Call for help. Follow-up with: Rupinder Bernard ARNP [Provider Admit Priv/Credential] -
[2017-03-05 15:49] VITALS: BP 130/79
--- NOTE | 2017-03-05 16:00 | DISCHARGE SUMMARY ---
Discharge Summary Discharge Date: 03/05/17 Discharging Provider: MEEKS Primary Care Provider: Rupinder Webb Condition at Discharge: Stable Discharge Disposition: 01 Home, Self Care Discharge Facility Name: home - DIAGNOSES Admission Diagnoses: (1) COPD exacerbation (2) Tobacco dependence (3) Alcohol dependence (4) Medical non-compliance (5) illicit drug abuse Discharge Diagnoses with Status of Each Condition: (1) COPD exacerbation RT exertion study reveals room air on rest with SO2 95% at HR 85, Walk on the whole hill way with HR 94, SO2 on 91% on room air. (2) Tobacco dependence pt clearly state to me he will quit tobacco (3) Alcohol dependence pt state he will gradually slow down alcohol intake (4) Medical non-compliance consult to pt for medical compliance, pt state he will do medical compliance (5) illicit drug abuse consult to pt to quit illicit drug abuse. - HPI History of Present Illness: please refer from Dr. Armendariz's HPI on 03/01/17 as the following: Mr. Shankar Dozier is a 62-year-old male who was diagnosed with COPD last year. He is supposed to take albuterol and follow-up with physicians regularly however he says that he has not done so since he lost his "Obama care " many months ago.He has been having increasing difficulty breathing over the last several months and over the last few weeks that has increased significantly. He is having significant dyspnea with any type of exertion and also at rest. He has been coughing up green sputum. He came to the [facility] emergency department and although the workup was essentially negative he is far too dyspneic with any type of exertion to be discharged. - HOSPITAL COURSE Hospital Course: pt was admitted for COPD exacerbation. pt is also found positive for Mathadone and Phong in UDS. Pt is current cigarette smoker. pt report he did not compliance to his INH. Pt was treated with steroid, and Duoneb. Pt report he feel very shaking when he has Albuterol INH. After treatment pt denies shortness of breathing, Room air with SO2 98% on rest, SO2 91% when walk at the hill way on room air. Pt is prescribed Duoneb, Xopenx, Prednisone. Pt state he will quit cigarette smoking, and no more illicit drug, and also reduce alcohol intake. - ALLERGIES Allergies/Adverse Reactions: Allergies Allergy/AdvReac Type Severity Reaction Status Date / Time No Known Drug Allergies Allergy Verified 03/01/17 19:55 - MEDICATIONS Home Medications: Ambulatory Orders Medication Instructions Recorded Confirmed Albuterol Sulfate [Proair Hfa 2 puffs INH Q4HR 05/02/15 03/01/17 Inhaler] Ipratropium/Albuterol [Duoneb] 3 ml INH Q4HR PRN #42 neb 03/05/17 Levalbuterol [Xopenex] 1.25 mg INH Q4H PRN #42 neb 03/05/17 - PHYSICAL EXAM AT DISCHARGE General Appearance: positive: No acute distress, Alert. negative: Lethargic Eyes Bilateral: positive: Normal inspection, PERRL, EOMI, No lid inflammation, Conjunctivae nml ENT: positive: ENT inspection nml, Pharynx nml, No signs of dehydration. negative: Purulent nasal drainage, Pharyngeal erythema, Oral lesions, Dry mucous membranes Neck: positive: Nml inspection, Thyroid nml, No JVD, Trachea midline. negative : Thyromegaly, Lymphadenopathy (R), Lymphadenopathy (L), Stiff neck, Carotid bruit, Swelling/bruising, Tracheal deviation Respiratory: positive: Chest non-tender, No respiratory distress, Other ( reduced lung sound bilaterally). negative: Wheezes, Rales, Rhonchi Cardiovascular: positive: Regular rate & rhythm, No murmur, No gallop. negative : Irregularly irregular, Extrasystoles, Tachycardia, Bradycardia, Systolic murmur, Diastolic murmur Peripheral Pulses: positive: 2+ Abdomen: positive: Non-tender, No organomegaly, Nml bowel sounds, No distention. negative: Tenderness, Guarding, Rebound Back: positive: Nml inspection. negative: CVA tenderness (R), CVA tenderness (L ) Skin: positive: Color nml, No rash, Warm, Dry. negative: Cyanosis, Diaphoresis , Pallor, Skin rash Extremities: positive: Non-tender, Full ROM, Nml appearance. negative: Calf tenderness, Joint swelling, Leeanna's sign/cords Neurologic/Psychiatric: positive: Oriented x3, Motor nml, Sensation nml, Mood/ affect nml. negative: Sensory loss, Facial droop, Slurred/abnml speech, Depressed mood/affect - LABS Result Diagrams: 03/05/17 05:03/05/17 05:05 - FOLLOW UP Follow Up: May follow up PCP in 3-4 days, see right of way appraiser in one to two weeks
== END 2017-03-05 17:00 | disposition home or self-care (01) | DRG 191 ==
LOC: EDUNIT# → ED 19:47 → MS2 22:52
PROVIDERS: ADMIT Hospitalist; ATTEND Nurse Practitioner Gerontology
DX: J44.1 Chronic obstructive pulmonary disease with (acute) exacerbation (principal); F10.29 Alcohol dependence with unspecified alcohol-induced disorder; T48.6X6A Underdosing of antiasthmatics, initial encounter; Z91.120 Patient's intentional underdosing of medication regimen due to financial hardship; R09.02 Hypoxemia; F17.210 Nicotine dependence, cigarettes, uncomplicated; F19.10 Other psychoactive substance abuse, uncomplicated; F11.10 Opioid abuse, uncomplicated
CPT/HCPCS: 36415; 71046; 71260; 80053; 80306; 82310; 83036; 83690; 83735; 83880; 84484; 85025; 93306; 94640; 94761; 96365; 96375; 99284; 99285

== ENCOUNTER 2017-04-03 08:55 | Outpatient (CLI) | payer MEDICAID ==
--- NOTE | 2017-04-03 13:58 | XRAY Report ---
THREE VIEW RIGHT SHOULDER: 04/03/2017 CLINICAL INDICATION: Pain. FINDINGS: Internal and external rotational views and a scapular Y view of the right shoulder demonstrate mild degenerative changes of the acromioclavicular and glenohumeral joints. There is no evidence of fracture or dislocation. No radiopaque foreign body is seen in the soft tissues. IMPRESSION: MILD DEGENERATIVE CHANGES. TD: 04/03/2017 13:57
== END 2017-04-03 08:56 | disposition home or self-care (01) ==
LOC: DI.S 08:55
PROVIDERS: ATTEND Nurse Practitioner Family
DX: M19.011 Primary osteoarthritis, right shoulder (principal)

== ENCOUNTER 2017-08-11 11:32 | Outpatient (CLI) | payer MEDICAID | END 2017-08-11 11:33 | disposition home or self-care (01) | LOC: LAB.S 11:32 | PROVIDERS: ATTEND Nurse Practitioner Family | DX: J44.9 Chronic obstructive pulmonary disease, unspecified (principal) | CPT/HCPCS: 36415; 81599 ==